=== PATIENT | male | born 1955 | race Caucasian/White ===

== ENCOUNTER → 2018-05-24 | Outpatient (CLI) | payer BC ==
--- NOTE | 2018-05-24 13:31 | CARD ---
MR#: [id number] Date of Study: 05/24/2018 Ordering Physician: ELISABETH GILLIAM, Referring Physician: ELISABETH GILLIAM Tech: Cathleen Brownlee RDCS APPROVED REPORT EXAM: Two-dimensional and M-mode echocardiogram with Doppler and color Doppler. Other Information Quality : AverageHR: 64bpm Rhythm : NSR INDICATION Syncope 2D DIMENSIONS RVDd3.4 (2.9-3.5cm)Left Atrium(2D)3.9 (1.6-4.0cm) IVSd1.5 (0.7-1.1cm)Aortic Root(2D)3.3 (2.0-3.7cm) LVDd4.5 (3.9-5.9cm)LVOT Diameter2.2 (1.8-2.4cm) PWd1.1 (0.7-1.1cm)LVDs2.4 (2.5-4.0cm) FS (%) 46.3 %SV71.2 ml LVEF(%)75.0 (>50%) M-Mode DIMENSIONS Left Atrium(MM)4.29 (2.5-4.0cm)Aortic Root3.24 (2.2-3.7cm) Aortic Valve AoV Peak Walt.122.4cm/sAoV VTI25.5cm AO Peak GR.6.0mmHgLVOT Peak Walt.99.6cm/s AO Mean GR.3mmHgAVA (VMAX)3.00cm2 YULI (VTI)2.90cm2 Mitral Valve MV E Gteajmyw92.7cm/sMV DECEL SQYE498av MV A Cytljnit39.6cm/sE/A Ratio0.8 MV A Ugbmnprl382ur Pulmonary Valve PV Peak Kcfohwdl672.6cm/s Tricuspid Valve TR P. Bdgvvgvn874ve/sRAP [id number] TR Peak Gr.53bpInSOWF45yoCg LEFT VENTRICLE The left ventricle is normal size. Proximal septal thickening is noted. The left ventricular systolic function is normal. The Ejection Fraction is 65-70%. There is normal LV segmental wall motion. Trans mitral Doppler flow pattern is Grade I-abnormal relaxation pattern. RIGHT VENTRICLE The right ventricle is normal size. There is normal right ventricular wall thickness. The right ventr icular systolic function is normal. ATRIA The left atrium is borderline dilated. The right atrium size is normal. The interatrial septum is int act with no evidence for an atrial septal defect or patent foramen ovale as noted on 2-D or Doppler i maging. AORTIC VALVE The aortic valve is normal in structure and function. The aortic valve is trileaflet. Doppler and Col or Flow revealed no significant aortic regurgitation. There is no significant aortic valvular stenosi s. MITRAL VALVE The mitral valve is normal in structure and function. There is no evidence of mitral valve prolapse. There is no mitral valve stenosis. Doppler and Color Flow revealed no mitral valve regurgitation note d. TRICUSPID VALVE The tricuspid valve is normal in structure and function. Doppler and Color Flow revealed trace tricus pid regurgitation. The PA pressure was estimated at 31 mmHg. There is no tricuspid valve prolapse or vegetation. There is no tricuspid valve stenosis. PULMONIC VALVE The pulmonary valve is normal in structure and function. Doppler and Color Flow revealed no pulmonic valvular regurgitation. There is no pulmonic valvular stenosis. GREAT VESSELS The aortic root is normal in size. The ascending aorta is normal in size. PERICARDIAL EFFUSION There is no evidence of significant pericardial effusion. Critical Notification Critical Value: No <Conclusion> The left ventricular systolic function is normal. The Ejection Fraction is 65-70%. There is normal LV segmental wall motion. Transmitral Doppler flow pattern is Grade I-abnormal relaxation pattern. Trace tricuspid regurgitation. The PA pressure was estimated at 31 mmHg. There is no evidence of significant pericardial effusion. Signed by : Elisabeth Gilliam, Electronically Approved : 05/24/2018 13:29:29
--- NOTE | 2018-05-25 09:49 | RAD ---
MR#: [id number] Date of Study: 05/24/2018 Ordering Physician: ELISABETH COOPER, Referring Physician: ELISABETH COOPER, Tech: STEPHANIE Cantu, RDMS, RTR APPROVED REPORT Patient Location: OUT-PATIENT Laterality:Bilateral Indications Dizziness and Vertigo Doppler Spectral Velocity Analysis Right Left pCCA 85/20 cm/spCCA 98/25 cm/s mCCA 65/20 cm/smCCA 66/17 cm/s dCCA 54/20 cm/sdCCA 62/20 cm/s ECA 75/ cm/sECA 75/ cm/s pICA 53/26 cm/spICA 43/16 cm/s Radha 69/32 cm/smICA 62/26 cm/s dICA 78/36 cm/sdICA 62/29 cm/s ICA/CCA 0.92ICA/CCA 0.63 Findings Grayscale images of the bilateral common carotid, external and internal carotid vessels do not reveal any obvious eccentric plaque. Spectral waveforms and color Doppler are within normal limits. Velocities are within normal limits. I CA to CCA ratios are within normal limits. The vertebral velocities are antegrade bilaterally. Critical Notification Critical Value: No <Conclusion> No evidence of significant carotid occlusive disease bilaterally. Signed by : Brian Molina, Electronically Approved : 05/25/2018 09:47:04
== END | disposition home or self-care (01) ==
LOC: ECHO 12:41
PROVIDERS: ATTEND Internal Medicine Cardiovascular Disease
DX: R42 Dizziness and giddiness (principal)
CPT/HCPCS: 93306; 93880